=== PATIENT | female | born 1970 | race Caucasian/White ===

== ENCOUNTER → 2020-12-09 06:57 | Outpatient (CLI) | payer OTHER, SELFPAY ==
[2020-12-09 20:23] LABS: SARS-CoV-2 RNA PCR Negative
== END ==
PROVIDERS: PCP Family Medicine
DX: Z01.812 Encounter for preprocedural laboratory examination (principal); Z20.822 Contact with and (suspected) exposure to COVID-19
CPT/HCPCS: C9803; U0003; U0005

== ENCOUNTER 2024-07-07 16:04 | Emergency (ER) | payer OTHER, SELFPAY ==
--- NOTE | ~2024-07-07 | US_ITS ---
LEFT LOWER EXTREMITY VENOUS ULTRASOUND Ordering provider: Juliana Sheppard PA-C History: . pain, swelling . Comparison: None. FINDINGS: --COMMON FEMORAL: Patent and free of thrombus. Normal compressibility, phasic flow and augmentation. --PROXIMAL SUPERFICIAL FEMORAL: Patent and free of thrombus. Normal compressibility, phasic flow and augmentation. --DISTAL SUPERFICIAL FEMORAL: Patent and free of thrombus. Normal compressibility, phasic flow and au gmentation. --POPLITEAL: Patent and free of thrombus. Normal compressibility, phasic flow and augmentation. --POSTERIOR TIBIAL: Patent and free of thrombus. Normal compressibility, phasic flow and augmentation . IMPRESSION: Negative left lower extremity venous US. No deep vein thrombosis. Reviewed, dictated and finalized at location A.
[2024-07-07 16:07] VITALS: BP 160/92; PULSE 88; RESP 15; TEMP 37; O2SAT 100
--- NOTE | 2024-07-07 17:45 | ED.LOWEXIN ---
HPI - Extremity Injury (Lower) General Chief Complaint: Extremity Injury, Lower Stated Complaint: PCP told her to US for DVT Time Seen by Provider: 07/07/24 16:59 History of Present Illness HPI Narrative: Patient is a 54-year-old female who presents to the ER with complaints left lower extremity pain and swelling. 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 Patient uses a walker to ambulate. She reports she has been working with physical therapy when her left lower extremity pain and swelling began. The physical therapist thought this was an Achilles tendinitis, but then patient saw her PCP earlier today who advised her to come to the ER for a Doppler ultrasound. She also reports her family has a history of blood clots. Patient denies shortness of breath, chest pain, fevers. Related Data Allergies Allergy/AdvReac Type Severity Reaction Status Date / Time Wasp Allergy Unknown Uncoded 04/11/16 15:11 Review of Systems Review of Systems: All systems reviewed & are unremarkable except as noted in HPI and below Exam Narrative: GENERAL: Well appearing, well-nourished, non-toxic, in no acute distress. HEAD: Normocephalic, atraumatic. NECK: Supple. No adenopathy, no masses. RESPIRATORY: Airway patent, respirations nonlabored. Clear to auscultation bilaterally, no rales, rhonchi, wheezing. CARDIOVASCULAR: Regular rate and rhythm without murmurs, rubs, or gallops. Peripheral pulses 2+ and equal bilaterally. ABDOMINAL: Soft, nontender, nondistended, no hepatosplenomegaly. Normoactive BS. MUSCULOSKELETAL: Moves all extremities. Strength/ROM intact without gross deformities. No palpable swelling or warmth to touch. SKIN: Warm, dry, normal color. No rashes. NEURO: A&O X3. Speech clear. Cranial nerves II-XII grossly intact. Steady gait. No ataxic movements. PSYCHIATRIC: Appropriate mood and affect. Normal interaction. Course Vital Signs Vital signs: Vital Signs Temperature 37.0 C 07/07/24 16:07 Pulse Rate 88 07/07/24 16:07 Respiratory Rate 15 07/07/24 16:07 Blood Pressure 160/92 H 07/07/24 16:07 Pulse Oximetry 100 07/07/24 16:07 Oxygen Delivery Room Air 07/07/24 16:07 Temperature 37.0 C 07/07/24 16:07 Pulse Rate 88 07/07/24 16:07 Respiratory Rate 15 07/07/24 16:07 Blood Pressure 160/92 H 07/07/24 16:07 Pulse Oximetry 100 07/07/24 16:07 Oxygen Delivery Room Air 07/07/24 16:07 MDM - Extremity Injury (Lower) MDM Narrative Medical decision making narrative: Patient is a 54-year-old female who presents to the ER with complaints left lower extremity pain and swelling. 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 Patient uses a walker to ambulate. She reports she has been working with physical therapy when her left lower extremity pain and swelling began. The physical therapist thought this was an Achilles tendinitis, but then patient saw her PCP earlier today who advised her to come to the ER for a Doppler ultrasound. She also reports her family has a history of blood clots. Patient denies shortness of breath, chest pain, fevers. Patient's left lower extremity venous ultrasound was negative for blood clot. She will be discharged home and encouraged to follow-up with her primary care provider. Patient should continue to ice and elevate her lower extremity. She may take ibuprofen to help decrease swelling. Differential Diagnosis Differential diagnosis: Likely ankle sprain and strain and other (DVT, tendonitis, achilles tendon injury) Discharge Plan Discharge Clinical Impression: Lower extremity pain, left Patient Disposition: Home, Self-Care Condition: Stable Instructions: Antibiotic Form Additional Instructions: Please follow-up with your primary care provider as needed. He may take ibuprofen for pain relief. Please continue
== END 2024-07-07 18:06 | disposition home or self-care (01) ==
PROVIDERS: Emergency Provider Registered Nurse; PCP Family Medicine
DX: M79.605 Pain in left leg (principal)
CPT/HCPCS: 93971; 99284

== ENCOUNTER 2025-07-05 16:43 | Emergency (ER) | payer OTHER, SELFPAY ==
--- OUTSIDE RECORDS SUMMARY | 2012-10-31 01:00 | XMS_ITS | Encounter Summary ---
Author Organization [facility] Healthcare Address [address] [place] [address] Care Team Providers Care Chief Media Officer Name Role Phone Unavailable Primary Care Provider Unavailabl e Reason for Visit * Diagnostic Imaging (Routine) - Closed Specialty Diagnoses / Procedures Referred By Contphillip t Referred To Contact Procedures Breast Imaging Diagnostic Outside Reference Ophelia Sprague, EDUARDO Phone: tel: fax: Referral ID Status Reason Start Date Expiration Date Visits Re quested Visits Authorized [id number] Closed 03/25/2022 04/24/2023 1 1 Encounter Details Date Type Department Care Team (Late st Contact Info) Description 10/31/2012 Hospital Encounter [facility] [address] [place] [address] Social History Tobacco Use Types Packs/Day Years Used Date Smoking Tobacco: Former Cigarettes 0 09/20/1985 - 08/20/1999 Passive Smoke Exposure: Past Smokeless Tobacco: Never Comments:Social AUDIT-C Answer Date Recorded Q1: How often do you have a drink containing alc ohol? Monthly or less 10/04/2023 Q2: How many drinks containi ng alcohol do you have on a typical day when you are drinking? 1 or 2 10/04/2023 Q3: How often do you have si x or more drinks on one occasion? Never 10/04/2023 PHQ-2 Answer Date Recorded PHQ-2 Total Score (If total score is 3 or more points, staff should administer the PHQ-9) 0 06/19/2025 Exercise Vital Sign Answer Date Recorde d On average, how many days pe r week do you engage in moderate to strenuous exercise (like a brisk walk)? 6 days 01/06/2022 On average, how many minutes do you engage in exercise at this level? 40 min 01/06/2022 Personal Safety Answer Date Recorded Have you ever been in or are you currently in a harmful physical or emotional relationship or is someone making you feel afraid or unsafe? 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 Monthly or less 10/04/2023 9:51 AM Ronni Cline MA Q2: How many drinks containing alcohol do you have on a typical day when you are drinking? 1 or 2 10/04/2023 9:51 AM Kimber Cline MA Q3: How often do you have six or more drinks on one occasion? Never 10/04/2023 9:51 AM Kimber Cline MA documented as of this encounter Plan of Treatment Not on file documented as of this encounter Procedures Procedure Name Priority Date/Time Associated Diagnosis Comments BREAST IMAGING MG DIAGNOSTIC OUTSIDE REFERENCE Routine 10/31/2012 12:00 AM SEAT MENDER documented in this encounter Results * Breast Imaging Diagnostic Outside Reference (10/31/2012 12:00 AM SEAT MENDER) Impressions RAD_MAMMO_[facility] - 03/25/2022 9:17 AM CDT These images are for Reference purposes only and have not been reviewed by [facility] Radiology. There will be no report generated by a [facility] Radiologist. Narrative RAD_MAMMO_[facility] - 03/25/2022 9:17 AM CDT EXAMINATION: Images For Reference Purposes Only us Ophelia Sprague CAR CARDER IMG MAMMO PROCEDURES Final Re sult RAD_MAMMO_[facility] documented in this encounter Visit Diagnoses Not on filedocumented in this encounter Additional Health Concerns Infection Onset Date Last Indicated Resolved Time COVID: Suspected 08/13/2023 08/13/2023 08/13/2023 10:32 AM SEAT MENDER documented as of this encounter
--- OUTSIDE RECORDS SUMMARY | 2014-02-06 | XMS_ITS | Encounter Summary ---
Author Organization [facility] Healthcare Address [address] [place] [address] Care Team Providers Care Coordinator Cardiopulmonary Services Name Role Phone Unavailable Primary Care Provider Unavailabl e Reason for Visit * Diagnostic Imaging (Routine) - Closed Specialty Diagnoses / Procedures Referred By Contphillip t Referred To Contact Procedures Breast Imaging Screening Outside Reference Ophelia Sprague, EDUARDO Phone: tel: fax: Referral ID Status Reason Start Date Expiration Date Visits Re quested Visits Authorized [id number] Closed 03/25/2022 04/24/2023 1 1 Encounter Details Date Type Department Care Team (Late st Contact Info) Description 02/06/2014 Hospital Encounter [facility] [address] [place] [address] Social History Tobacco Use Types [...] on file Legal Sex Female 11:29 AM AUDIO/VISUAL OPERATOR Gender Identity Female 10/08/2021 7:18 PM AUDIO/VISUAL OPERATOR Sexual Orientation Not on file 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 on file Not on file documented as of this encounter Functional Status * AUDIT-C Score Answer Date of Assessment Author 1 10/04/2023 9:51 AM Avelino Cline MA * Question Answer Date of Assessment [...] Date/Time Associated Diagnosis Comments BREAST IMAGING MG SCREENING OUTSIDE REFERENCE Routine 02/06/2014 12:00 AM CDT documented in this encounter Results * Breast Imaging Screening Outside Reference (02/06/2014 12:00 AM CDT) Impressions RAD_MAMMO_[facility] - 03/25/2022 9:18 AM CDT These images are for Reference purposes only and have not been reviewed by [facility] Radiology. There will be no report generated by a [facility] Radiologist. Narrative RAD_MAMMO_[facility] - 03/25/2022 9:18 AM CDT EXAMINATION: Images For Reference Purposes Only us Ophelia Sprague SUPERVISOR SHIPPING ROOM IMG MAMMO PROCEDURES Final Re sult RAD_MAMMO_[facility] documented in this encounter Visit Diagnoses Not on filedocumented in this encounter Additional Health Concerns Infection Onset Date Last Indicated Resolved Time COVID: Suspected 08/13/2023 08/13/2023 08/13/2023 10:32 AM AUDIO/VISUAL OPERATOR documented as of this encounter
--- OUTSIDE RECORDS SUMMARY | 2015-06-07 | XMS_ITS | Encounter Summary ---
Author Organization [facility] Healthcare Address [address] [place] [address] Care Team Providers Care Bulb Packer Name Role Phone Unavailable Primary Care Provider Unavailabl e Reason for Visit * Diagnostic Imaging (Routine) - Closed Specialty Diagnoses / Procedures Referred By Contphillip t Referred To Contact Procedures Breast Imaging Screening Outside Reference Ophelia Sprague, EDUARDO Phone: tel: fax: Referral ID Status Reason Start Date Expiration Date Visits Re quested Visits Authorized [id number] Closed 03/25/2022 04/24/2023 1 1 Encounter Details Date Type Department Care Team (Late st Contact Info) Description 06/07/2015 Hospital Encounter [facility] [address] [place] [address] Social History Tobacco Use Types [...] on file Legal Sex Female 11:29 AM BAR FINISH OPERATOR Gender Identity Female 10/08/2021 7:18 PM BAR FINISH OPERATOR Sexual Orientation Not on file 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 Never 10/04/2023 9:51 AM Kimber Cline MA documented as of this encounter Plan of Treatment Not on file documented as of this encounter Procedures Procedure Name Priority Date/Time Associated Diagnosis Comments BREAST IMAGING MG SCREENING OUTSIDE REFERENCE Routine 06/07/2015 12:00 AM CDT documented in this encounter Results * Breast Imaging Screening Outside Reference (06/07/2015 12:00 AM CDT) Impressions RAD_MAMMO_[facility] - 03/25/2022 9:18 AM CDT These images are for Reference purposes only and have not been reviewed by [facility] Radiology. There will be no report generated by a [facility] Radiologist. Narrative RAD_MAMMO_[facility] - 03/25/2022 9:18 AM CDT EXAMINATION: Images For Reference Purposes Only us Ophelia Sprague PUSHER RUNNER IMG MAMMO PROCEDURES Final Re sult RAD_MAMMO_[facility] documented in this encounter Visit Diagnoses Not on filedocumented in this encounter Additional Health Concerns Infection Onset Date Last Indicated Resolved Time COVID: Suspected 08/13/2023 08/13/2023 08/13/2023 10:32 AM BAR FINISH OPERATOR documented as of this encounter
--- OUTSIDE RECORDS SUMMARY | 2016-07-30 01:00 | XMS_ITS | Encounter Summary ---
Author Organization [facility] Healthcare Address [address] [place] [address] Care Team Providers Care Email Administrator Name Role Phone Unavailable Primary Care Provider Unavailabl e Reason for Visit * Diagnostic Imaging (Routine) - Closed Specialty Diagnoses / Procedures Referred By Contphillip t Referred To Contact Procedures Breast Imaging Screening Outside Reference Ophelia Sprague, EDUARDO Phone: tel: fax: Referral ID Status Reason Start Date Expiration Date Visits Re quested Visits Authorized [id number] Closed 03/25/2022 04/24/2023 1 1 Encounter Details Date Type Department Care Team (Late st Contact Info) Description 07/30/2016 Hospital Encounter [facility] [address] [place] [address] Social History Tobacco Use Types [...] on file Legal Sex Female 11:29 AM LADLE REPAIRER Gender Identity Female 10/08/2021 7:18 PM LADLE REPAIRER Sexual Orientation Not on file 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 There will be no report generated by a [facility] Radiologist. Narrative RAD_MAMMO_[facility] - 03/25/2022 9:18 AM CDT EXAMINATION: Images For Reference Purposes Only us Ophelia Sprague BEATING MACHINE OPERATOR IMG MAMMO PROCEDURES Final Re sult RAD_MAMMO_[facility] documented in this encounter Visit Diagnoses Not on filedocumented in this encounter Additional Health Concerns Infection Onset Date Last Indicated Resolved Time COVID: Suspected 08/13/2023 08/13/2023 08/13/2023 10:32 AM LADLE REPAIRER documented as of this encounter
--- OUTSIDE RECORDS SUMMARY | 2018-04-01 | XMS_ITS | Encounter Summary ---
Author Organization [facility] Healthcare Address [address] [place] [address] Care Team Providers Care Heating Worker Name Role Phone Unavailable Primary Care Provider Unavailabl e Reason for Visit * Diagnostic Imaging (Routine) - Closed Specialty Diagnoses / Procedures Referred By Contphillip t Referred To Contact Procedures Breast Imaging Screening Outside Reference Ophelia Sprague, EDUARDO Phone: tel: fax: Referral ID Status Reason Start Date Expiration Date Visits Re quested Visits Authorized [id number] Closed 03/25/2022 04/24/2023 1 1 Encounter Details Date Type Department Care Team (Late st Contact Info) Description 04/01/2018 Hospital Encounter [facility] [address] [place] [address] Social History Tobacco Use Types [...] on file Legal Sex Female 11:29 AM GRILL CHEF Gender Identity Female 10/08/2021 7:18 PM GRILL CHEF Sexual Orientation Not on file 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 There will be no report generated by a [facility] Radiologist. Narrative RAD_MAMMO_[facility] - 03/25/2022 9:17 AM CDT EXAMINATION: Images For Reference Purposes Only us Ophelia Sprague VENEREAL DISEASE INVESTIGATOR IMG MAMMO PROCEDURES Final Re sult RAD_MAMMO_[facility] documented in this encounter Visit Diagnoses Not on filedocumented in this encounter Additional Health Concerns Infection Onset Date Last Indicated Resolved Time COVID: Suspected 08/13/2023 08/13/2023 08/13/2023 10:32 AM GRILL CHEF documented as of this encounter
--- OUTSIDE RECORDS SUMMARY | 2019-07-03 | XMS_ITS | Encounter Summary ---
Author Organization [facility] Healthcare Address [address] [place] [address] Care Team Providers Care Dye Beck Reel Operator Name Role Phone Unavailable Primary Care Provider Unavailabl e Reason for Visit * Diagnostic Imaging (Routine) - Closed Specialty Diagnoses / Procedures Referred By Contphillip t Referred To Contact Procedures Breast Imaging Screening Outside Reference Ophelia Sprague, EDUARDO Phone: tel: fax: Referral ID Status Reason Start Date Expiration Date Visits Re quested Visits Authorized [id number] Closed 03/25/2022 04/24/2023 1 1 Encounter Details Date Type Department Care Team (Late st Contact Info) Description 07/03/2019 Hospital Encounter [facility] [address] [place] [address] Social History Tobacco Use Types Packs/Day [...] on file Legal Sex Female 11:29 AM CRYOLITE RECOVERY OPERATOR Gender Identity Female 10/08/2021 7:18 PM CRYOLITE RECOVERY OPERATOR Sexual Orientation Not on file 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 There will be no report generated by a [facility] Radiologist. Narrative RAD_MAMMO_[facility] - 03/25/2022 9:26 AM CDT EXAMINATION: Images For Reference Purposes Only us Ophelia Sprague KENNEL OPERATOR IMG MAMMO PROCEDURES Final Re sult RAD_MAMMO_[facility] documented in this encounter Visit Diagnoses Not on filedocumented in this encounter Additional Health Concerns Infection Onset Date Last Indicated Resolved Time COVID: Suspected 08/13/2023 08/13/2023 08/13/2023 10:32 AM CRYOLITE RECOVERY OPERATOR documented as of this encounter
--- OUTSIDE RECORDS SUMMARY | 2020-11-14 01:00 | XMS_ITS | Encounter Summary ---
Author Organization [facility] Healthcare Address [address] [place] [address] Care Team Providers Care Thermodynamics Professor Name Role Phone Unavailable Primary Care Provider Unavailabl e Reason for Visit * Diagnostic Imaging (Routine) - Closed Specialty Diagnoses / Procedures Referred By Contphillip t Referred To Contact Procedures Breast Imaging Screening Outside Reference Ophelia Sprague, EDUARDO Phone: tel: fax: Referral ID Status Reason Start Date Expiration Date Visits Re quested Visits Authorized [id number] Closed 03/25/2022 04/24/2023 1 1 Encounter Details Date Type Department Care Team (Late st Contact Info) Description 11/14/[address] 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 Not on file Not on file documented as of this encounter Functional Status * AUDIT-C Score Answer Date of Assessment Author 1 10/04/2023 9:51 AM BUS DISPATCHER INTERSTATE Avelino Rodriguez MA * Question Answer Date [...] BREAST IMAGING MG SCREENING OUTSIDE REFERENCE Routine 11/14/2020 12:00 AM BUS DISPATCHER INTERSTATE documented in this encounter Results * Breast Imaging Screening Outside Reference (11/14/2020 12:00 AM BUS DISPATCHER INTERSTATE) Impressions RAD_MAMMO_[facility] - 03/25/2022 9:26 AM CDT These images are for Reference purposes only and have not been reviewed by [facility] Radiology. There will be no report generated by a [facility] Radiologist. Narrative RAD_MAMMO_[facility] - 03/25/2022 9:26 AM CDT EXAMINATION: Images For Reference Purposes Only us Ophelia Sprague WEIGH BOSS IMG MAMMO PROCEDURES Final Re sult RAD_MAMMO[facility] documented in this encounter Visit Diagnoses Not on filedocumented in this encounter Additional Health Concerns Infection Onset Date Last Indicated Resolved Time COVID: Suspected 08/13/2023 08/13/2023 08/13/2023 10:32 AM BUS DISPATCHER INTERSTATE documented as of this encounter
--- OUTSIDE RECORDS SUMMARY | 2022-02-13 09:00 | XMS_ITS | Continuity of Care Document ---
Author Organization [facility] Address [address] [place] [address] Phone Care Team Providers Care Sales Development Executive Name Role Phone Sameer PT,MPT,ATC, Gary Unavailable Unavai lable Procedures Procedure Date Neuromuscular Re-Ed Therapeutic Activities Therapeutic Exercise Therapeutic Activities Neuromuscular Re-Ed Therapeutic Exercise Therapeutic Activities Neuromuscular Re-Ed Therapeutic Exercise PT Evaluation High Complexity Therapeutic Activities Advance Directives Directive Yes / No Effective Date File Name No Information Encounters Encounter Description Practice Location Reason(s) For Visit Diagnoses Date Provider Providers Copied on Encounter [facility], [address], [id number], tel:[phone] [place] No Information 2 Sameer Garcia [place], [place], [place]. Referring Provider: Laureano Dior, [address] [place] [address], [address]. tel:[phone] [facility], [address] [facility] [address], [place], [place], [id number], tel:[phone] [place] No Information 2 Sameer Garcia [place], [place], [place]. Referring Provider: Laureano Dior, [address] [place] [address] Office [facility] [address], [address]. tel:[phone] [facility] [address] [place] [address], [id number], tel:[phone] [place] No Information 2 [place], [place], . Referring Provider: Laureano Dior, [address] [place] [address], [facility]. tel:[phone] [facility] [address], [id number], tel:[phone] [place] No Information 2 [facility]. Referring Provider: Laureano Dior, [address] [place] [address], [facility]. tel:[phone] [facility] [address] [place] [address], [id number], tel:[phone] [place] No Information 2 [place], [place], [place]. Referring Provider: Laureano Dior, [address] [place] [address], [facility]. tel:[phone] Family History Family Member Type Diagnosis Age At Onset No Information Payers Payer name Insurance type Covered alliance party ID Authoriza tion(s) No Information Social History Type Description Quantity Date Captured Comments Sex Male Smoking Status No Information Chief Complaint And Reason For Visit No Information Reason For Referral Reason For Referral No Information History Of Present Illness Encounter Date Complaint History Of Prese nt Illness No Information Functional Status Date Functional Assessmen t No Information Instructions Date Instruction Additional Infor mation Giving encouragement to exercise Related to Overweight Giving encouragement to exercise Related to Overweight Assessments Type Assessment Date No Information Patient Care Teams Name Effective Dates (start - stop) Status Members No Information
--- OUTSIDE RECORDS SUMMARY | 2022-02-13 09:00 | XMS_ITS | Continuity of Care Document ---
Author Organization [facility] Address [address] [place] [address] Phone Care Team Providers Care Pm Head Cook Name Role Phone Sameer PT,MPT,ATC, Gary Unavailable Unavai lable Procedures Procedure Date Neuromuscular Re-Ed Therapeutic Activities Therapeutic Exercise Therapeutic Activities Neuromuscular Re-Ed Therapeutic Exercise Therapeutic Activities Neuromuscular Re-Ed Therapeutic Exercise PT Evaluation High Complexity Therapeutic Activities Advance Directives Directive Yes / No Effective Date File Name No Information Encounters Encounter Description Practice Location Reason(s) For Visit Diagnoses Date Provider Providers Copied on Encounter [facility], [address], [id number], tel:[phone] [place] No Information 2 Sameer Garcia [place], [place], [place]. Referring Provider: Laureano Dior, [address] [place] [address], [address]. tel:[phone] [facility], [address] [facility] [address], [place], [place], [id number], tel:[phone] [place] No Information 2 Sameer Garcia [place], [place], [place]. Referring Provider: Laureano Dior, [address] [place] [address] Office [facility] [address], [address]. tel:[phone] [facility] [address] [place] [address], [id number], tel:[phone] [place] No Information 2 [place], [place], . Referring Provider: Laureano Dior, [address] [place] [address], [facility]. tel:[phone] [facility] [address], [id number], tel:[phone] [place] No Information 2 [facility]. Referring Provider: Laureano Dior, [address] [place] [address], [facility]. tel:[phone] [facility] [address] [place] [address], [id number], tel:[phone] [place] No Information 2 [place], [place], [place]. Referring Provider: Laureano Dior, [address] [place] [address], [facility]. tel:[phone] Family History Family Member Type Diagnosis Age [...]
--- NOTE | 2025-07-05 16:47 | PC.NURSE ---
Pt left the department
--- OUTSIDE RECORDS SUMMARY | 2025-07-05 17:54 | XMS_ITS | Clinical Summary ---
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 06/13/2021 Active Active Problems Problem Noted Date Diagnosed Date Lumbar radiculopathy 04/13/2022 Family History Medical History Relation Comments No Known Problems Brother No Known Problems Father No Known Problems Maternal Aunt No Known Problems Maternal Grandfather No Known Problems Maternal Grandmother No Known Problems Maternal Uncle No Known Problems Mother No Known Problems Other No Known Problems Paternal Aunt No Known Problems Paternal Grandfather No Known Problems Paternal Grandmother No Known Problems Paternal Uncle No Known Problems Sister Relation Status Comments Brother Father Maternal Aunt Maternal Grandfather Maternal Grandmother Maternal Uncle Mother Other Paternal Aunt Paternal Grandfather Paternal Grandmother Paternal Uncle Sister Social History Tobacco Use Types Packs/Day Years Used Date Smoking Tobacco: Never Smokeless Tobacco: Never Tobacco Cessation:Counseling Given: No Comments:patient doesnt smoke PHQ-2 Answer Date Recorded PHQ-2 Score - If the patient scores above 3, please move on to questions 3-9 0 04/10/2022 Comments Unknown Sex and Gender Information Value Date Recorded Sex Assigned at Not on file Legal Sex Female 2:12 PM CDT Gender Identity Not on file Sexual Orientation Not on file Last Filed Vital Signs Vital Sign Reading Time Taken Comments Blood Pressure 138/84 04/13/2022 3:30 PM CDT Pulse 81 04/13/2022 3:30 PM CDT Temperature - - Respiratory Rate - - Oxygen Saturation 97% 04/13/2022 3:30 PM CDT Inhaled Oxygen Concentration - - Weight 83.5 kg (184 lb) 04/13/2022 3:30 PM CDT Height 170.2 cm (5' 7) 04/13/2022 3:30 PM CDT Body Mass Index 28.82 04/13/2022 3:30 PM CDT Plan of Treatment Health Maintenance Due Date Last Done Comments Cervical Cancer Screening Pa p Smear (Age 30 to 64) Every 3 Years 1970 Colorectal Cancer Screening Colonoscopy (10 Years) 1970 Annual Physical 1973 Hepatitis C 01/13/1988 DTaP, Tdap and Td Vaccines ( 1 - Tdap) 1989 Hepatitis B Vaccines (1 of 3 - 19+ 3-dose series) 1989 Cervical Cancer Screening Pa p with HPV Testing (Age 30 to 64) Every 5 Years 01/13/2000 Cervical Cancer Screening wi th HPV 01/13/2000 Mammogram Screening 2010 Pneumococcal Vaccine: 50+ Years (1 of 1 - PCV) 01/13/2020 COVID-19 Vaccine (2024-2 6 season) 2025 09/11/2021, 02/03/2021, 01/13/2021 Influenza Adult (#1) 2025 07/29/2021, 08/03/2020 Zoster Vaccines Completed 09/14/2020, 05/11/2020 Hepatitis A Vaccines Aged Out No long er eligible based on patient's age to complete this topic Meningococcal B Vaccine Aged Out No l onger eligible based on patient's age to complete this topic Meningococcal Vaccine Aged Out No evans jake eligible based on patient's age to complete this topic RSV Immunizations Under 20 Months Aged Out No longer eligible b ased on patient's age to complete this topic Insurance [facility] Care Teams Traffic Workforce Representative Relationship Specialty Start Date End Date Joni Hilario MD [address] [place] [address] [id number] [place] [address] PCP - General FAMILY PRACTICE 04/10/22
--- OUTSIDE RECORDS SUMMARY | 2025-07-05 17:54 | XMS_ITS | Clinical Summary ---
Author Organization [facility] [address] [place] [id number] Care Team Providers Care Gi Physician Name Role Phone Laureano Ramos MD Unavailable [phone] Stacie Madrid MD Unavailable [phone] Joni Hilario MD Primary Care Provider [phone] Allergies Active Allergy Reactions Criticality Noted Date Comments Venom-Wasp Anaphylaxis High 09/02/2021 Medications UNABLE TO FIND as needed Med Name: CBD PO and topical per per. Active flaxseed oiL 1,000 mg capsule Take 1 capsule (1,000 mg total) by mouth daily Active cod liver oiL capsuleIndicati ons:Vitamin D Deficiency,dee min A deficiency Take 1 capsule by mouth daily Active HERBAL DRUGS ORAL Boswellia Complex: 3 tablets daily Active Lactobacillus acidophilus 1 billion cell capsule Take 1 capsule by mouth daily Active MAGNESIUM L-THREONATE ORAL 03/20/20 24 Active RED BEET ORAL Take by mouth Ac tive EPINEPHrine 0.3 mg/0.3 mL auto-injection syringe Inject 0.3 mL (0.3 mg total) into the muscle as instructed daily as needed for anaphylaxis 2 each 2 06/19/20 25 Active losartan-hydroc hlorothiazide (HYZAAR) 100-25 mg per tabletIndicatio ns:Primary hypertension TAKE 1 TABLET DAILY 90 tablet 3 07/03/20 25 Active EPINEPHrine 0.3 mg/0.3 mL auto-injection syringe Inject 0.3 mL (0.3 mg total) into the muscle as instructed daily as needed for anaphylaxis 2 each 2 05/15/20 24 2024 Discontinued(R eorder) acetaminophen (TYLENOL) 500 mg tablet Take 2 tablets (1,000 mg total) by mouth as needed 2024 Discontinued(T herapy completed) losartan-hydroc hlorothiazide (HYZAAR) 100-25 mg per tabletIndicatio ns:Primary hypertension TAKE 1 TABLET DAILY 100 tablet 04/04/20 25 2024 Discontinued Active Problems Problem Noted Date Diagnosed Date 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 Cervical myelopathy 06/29/2024 Pituitary adenoma 06/29/2024 S/P arthroscopic partial medial meniscectomy Chronic pain of right knee 03/09/2023 Acute medial meniscus tear of right knee 023 Hypercholesterolemia 02/09/2023 Tarsal tunnel syndrome of right side 08/20/2022 Radiculopathy, lumbosacral region 07/28/2022 Spinal stenosis of lumbar re gion without neurogenic claudication 07/28/2022 Right foot drop 06/17/2022 Assessment & Plan (06/17/2022 11:20 AM CDT): Gricel Andrade is a 52 year old woman with history of cervical myelopathy s/p C4-C6 ACDF (08/2021) and right foot drop, presenting for evaluation of possible dystonia. This right foot drop has impaired her walking and running. She reports paroxysmal shooting pain in her lower leg, but denied persistent sensory changes. Her exam was notable for right lower extremity weakness (4/5, except for knee extension 5/5) and left ankle dorsiflexion weakness. She did not have any sensory deficits on exam. She was hyperreflexic with ankle clonus bilaterally (Right more than left). She had mild circumduction of her right leg when walking. She did not exhibit any posturing while walking and her foot drop was present when walking both forward and backward. She has had multiple EMG/NCS that have not shown a clear peripheral cause for her right lower extremity weakness. Her RLE weakness did not respond to cervical decompression. Her current presentation is not consistent with dystonia or another movement disorder. She has not had any abnormal posturing, and she denied any focal stiffness. Her predominant symptom is weakness, as detected on confrontational testing and with mild circumduction in walking. Dystonia is not typically accompanied by weakness. It is not clear as this time what is causing her weakness. I would not expect her weakness to progress after cervical decompression if it were related to a cervical myelopathy. The asymmetry in her weakness (more prominent on the right than left) could suggest an intracranial pathology. We will also check for reversible causes of myelopathy. Plan: - MRI brain with IAC with and without contrast. IAC as medullary lesion could cause bilateral symptoms and she has had some change in voice - check B12, Cu, Vitamin E - schedule follow-up in 3 months, though depending on results she may not need follow-up in movement disorders clinic. - agree with recommendation for an AFO and physical therapy Impaired gait and mobility 06/17/2022 Sacroiliitis 04/08/2022 Spondylosis of lumbar region without myelopathy or radiculopathy 04/08/2022 Weakness of right lower extremity 04/08/2022 Encounter for medical examination to establish c are 01/06/2022 Assessment & Plan (01/06/2022 3:13 PM CDT): A initial well visit to establish care has been performed today. Gricel Andrade is not up to date on screening tests. She is in need of Breast cancer screening, Colon cancer screening and Cervical cancer screening- some of these appear to have been done in the past, we will try to get records. She is not up to date on needed preventative vaccinations; She is in need of Tdap/Td and Covid-19 (booster). These have been ordered/arranged unless otherwise indicated. Menorrhagia with regular cycle 11/27/2021 Fibroid 11/27/2021 Cervical disc disorder with myelopathy of mid-cervical region 08/11/2021 Overview (08/11/2021): Added automatically from request for surgery [id number] Post-operative state 09/24/2020 Screen for colon cancer 07/05/2020 Overweight 02/09/2019 Allergy to bee sting 02/09/2019 Primary hypertension 12/26/2018 Assessment & Plan (01/06/2022 3:09 PM CDT): Blood pressure remains elevated on recheck. We will adjust blood pressure medication, starting on losartan- hydrochlorothiazide 50-25 mg daily Would recommend taking at bedtime or in the evening Resolved Problems Problem Noted Date Diagnosed Date Resolved Date Class 1 obesity due to exces s calories without serious comorbidity with body mass index (BMI) of 31.0 to 31.9 in adult 03/10/2023 Assessment & Plan (03/10/2023 11:57 AM CDT): BMI Follow-up includes: nutrition counseling, exercise counseling, and education provided. Pruritus ani 02/09/2019 12/18/2024 Encounters Date Type Department Care Team Description 06/19/2025 8:15 AM CDT Office Visit [facility] Primary Care at [address] [phone] Joni Hilario MD Primary hypertension (Primary Dx); Need for vaccination; Hypercholesterolemia ; Cervical myelopathy (HCC); Pituitary adenoma (HCC) 06/14/2025 3:15 PM CDT Lab [place] [id number] Screening for thyroid disorder; Screening, lipid; Well adult exam 06/14/2025 Results Follow-Up [facility] Primary Care at [address] [phone] Joni Hilario MD CBC with auto differential, Differential, auto 05/10/2025 1:00 PM CDT Office Visit [facility] Medicine Orthopaedic Surgery [address] [place] [address] Advanced Medicine 12th [place] [address] [place] [address] Rickey Kidd PA Spasticity (Primary Dx); Cervical myelopathy (HCC) from Last 3 Months Immunizations Immunization Administration Dates Next Due Influenza, Quadrivalent, Rec ombinant, Egg Free, Preservative Free, Intramuscular 08/03/2020 Influenza, Quadrivalent, Spl it, Preservative Free, Intramuscular 07/27/2022,07/29/2021 Influenza, Trivalent, Preser vative Free, Intramuscular 06/19/2025,12/18/2024 Influenza, Unspecified 10/04/2023(Deferr ed: Patient Refused),09/20/2022(Deferred: Patient Refused),07/21/2021,08/04/2020(Deferre d: Patient Refused) Pfizer SARS-CoV-2 Monovalent Vaccination (12+ Yrs) PURPLE 02/03/2021,01/13/2021 Tdap 06/19/2025 ZOSTER Recombinant 09/14/2020,05/11/2020 Surgical History Surgery Date Site/Laterality Comments HYSTERECTOMY 10/13/2020 still has ovaries COLONOSCOPY BIOPSY anal SPINE SURGERY 09/02/2021 C4-6 WISDOM TOOTH EXTRACTION 09/20/1987 - 09/19/1988 KNEE ARTHROSCOPY W/ LATERAL RELEASE 06/2023 Medical History Medical History Date Comments Hypertension PONV (postoperative nausea and vomiting) admitted following hysterectomy d/t PONV DDD (degenerative disc disea se), cervical Cervical myelopathy (HCC) Family History Medical History Relation Name Comments Diabetes Brother Jim No Known Problems Daughter Alcohol abuse Father Ricardo Alzheimer's disease Father Ricardo Diabetes Father Ricardo Heart attack Father Ricardo Hypertension Father Ricardo Obesity Father Ricardo Cancer Mother Cora breast Clotting disorder Mother Cora Deep vein thrombosis Mother Cora Diabetes Mother Cora Heart failure Mother Cora Hypertension Mother Cora Obesity Mother Cora No Known Problems Sister 1 Theresa Cancer Sister 2 Ludwig Diabetes Sister 2 Ludwig Hypertension Sister 2 Ludwig Obesity Sister 2 Ludwig Cancer Sister 3 Melissa Diabetes Sister 3 Melissa Hypertension Sister 3 Melissa Obesity Sister 3 Melissa Diabetes Sister 4 Christina Hypertension Sister 4 Christina Obesity Sister 4 Christina Hypertension Sister 5 Sophy No Known Problems Son 1 No Known Problems Son 2 Anesthesia problems Neg Hx Relation Name Status Comments Brother Jim Alive Daughter Alive Father Ricardo Mother Cora Alive Sister 1 Theresa Alive Sister 2 Ludwig Alive Sister 3 Melissa Alive Sister 4 Christina Alive Sister 5 Sophy Alive Son 1 Alive Son 2 Alive Social History Tobacco Use Types Packs/Day Years Used Date Smoking Tobacco: Former Cigarettes 0 09/20/1985 - 08/20/1999 Passive Smoke Exposure: Past Smokeless Tobacco: Never Tobacco Cessation:Counseling Given: Not Answered Comments:Social AUDIT-C Answer Date Recorded Q1: How [...] on file Legal Sex Female 11:29 AM WATER PUMPER Gender Identity Female 10/08/2021 7:18 PM WATER PUMPER Sexual Orientation Not on file 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 Not on file Not on file Not on file Obstetrics History Last Filed Vital Signs Vital Sign Reading Time Taken Comments Blood Pressure 124/70 06/19/2025 8:25 AM CDT Pulse 78 06/19/2025 8:25 AM CDT Temperature 36.8 C (98.3 F) 06/19/2025 8:25 AM CDT Respiratory Rate 18 06/19/2025 8:25 AM CDT Oxygen Saturation 97% 06/19/2025 8:25 AM CDT Inhaled Oxygen Concentration - - Weight 79.8 kg (176 lb) 06/19/2025 8:25 AM CDT Height 170.2 cm (5' 7) 06/19/2025 8:25 AM CDT Body Mass Index 27.57 06/19/2025 8:25 AM CDT Plan of Treatment Health Maintenance Due Date Last Done Comments Breast Cancer Screening-Mammogram 10/19/2025 10/19/2024, 03/02/2022, 03/02/2022, Additional history exists Regular Well Visit/Exam 18-64 12/18/2025 12/18/2024, 01/06/2022 Covid-19 Vaccine ( season) 2026 09/11/2021, 02/03/2021, 01/13/2021 Postponed from 05/21/2025 (Patient declined, but will receive in the future) Depression Screening 06/19/2026 06/19/2025, 12/18/2024, 06/19/2024, Additional history exists Colon Cancer Screening-Colonoscopy 12/12/2030 12/12/2020 DTaP/Tdap/Td Vaccine (2 - Td or Tdap) 06/19/2035 06/19/2025 Zoster Vaccine Completed 09/14/2020, 05/11/2020 Hepatitis B Screening Completed 12/11/2024 Hepatitis C Screening Completed 12/11/2024 Influenza Vaccine Completed 06/19/2025, , 07/27/2022, Additional history exists Pneumococcal vaccine <65 Aged Out No longer eligible based on patient's age to complete this topic Medical Devices Implanted Type Area Ticket Worker Device Identifier Shelf Expiration Date Model / Serial / Lot [employer] 700-025 I Factor Allograft Putty Syringe Graft 2.5cc Bone - [id number] Implanted:Qty: 1 on 09/02/2021 by Laureano Ramos MD at [facility] Graft N/A: Spine Cervical [employer] 04/19/2024 700-025 / / [id number] [employer] [id number] Cage Spinal Cervical 12d X 14w X 6h 6 Degree - [id number] Implanted:Qty: 1 on 09/02/2021 by Laureano Ramos MD at [facility] N/A: Spine Cervical [employer] [id number] 01/27/2024 [id number] / / [id number] [employer] [id number] Cage Spinal Cervical 12d X 14w X 6h 6 Degree - [id number] Implanted:Qty: 1 on 09/02/2021 by Laureano Ramos MD at [facility] N/A: Spine Cervical [employer] [id number] / / [employer] [id number] Maxan 4mm 14mm Variable Angle Self Drill Spine Screw Bone - [id number] Implanted:Qty: 4 on 09/02/2021 by Laureano Ramos MD at [facility] N/A: Spine Cervical [employer] [id number] / / [employer] [id number] Maxan 4mm 14mm Fix Angle Spine Screw Bone - [id number] Implanted:Qty: 2 on 09/02/2021 by Laureano Ramos MD at [facility] N/A: Spine Cervical [employer] [id number] / / [employer] [id number] Maxan 26mm Level 2 Spine Cervical Anterior Plate Bone Titanium - [id number] Implanted:Qty: 1 on 09/02/2021 by Laureano Ramos MD at [facility] N/A: Spine Cervical [employer] [id number] / / Procedures Procedure Name Priority Date/Time Associated Diagnosis Comments EGFR Routine 06/14/2025 3:20 PM CDT Well adult exam DIFFERENTIAL AUTO Routine 06/14/2025 3:2 0 PM CDT Well adult exam COMPREHENSIVE METABOLIC PANEL Routine 06/14/2025 3:20 PM CDT Well adult exam CBC WITH AUTO DIFFERENTIAL Routine 06/14/2025 3:20 PM CDT Well adult exam LIPID PANEL Routine 06/14/2025 3:20 PM CDT Screening, lipid THYROID FUNCTION CASCADE Routine 06/14/2025 3:20 PM CDT Screening for thyroid disorder BOTOX INJECTION Routine 05/10/2025 1:00 PM CDT Spasticity HEPATITIS C ANTIBODY Routine 12/11/2024 1:20 PM CDT Need for hepatitis C screening test SCREENING MAMMOGRAM BILATERAL W AUGUSTO Schedule Routine, Read Routine (OP Routine) 10/19/2024 11:46 AM WATER PUMPER Encounter for screening mammogram for breast cancer COLONOSCOPY Routine 12/12/2020 from Last 3 Months or Most Recently Relevant to Health Maintenance Results * eGFR (06/14/2025 3:20 PM CDT) [facility] eGFR >90 >=60 mL/min/1. 73 m2 Comment: Interpretive Data Reference Interval Normal >/= 90 mL/min/1.73m2 Mildly decreased* 60 - 89 mL/min/1.73m2 Mildly to moderately decreased 45 - 59 mL/min/1.73m2 Moderately to severely decreased 30 - 44 mL/min/1.73m2 Severely decreased 15 - 29 mL/min/1.73m2 Kidney Failure < 15 mL/min/1.73m2 *Relative to young adult level Estimated glomerular filtration rate is determined by the 2020 CKD-EPI equation recommended by the National Kidney Foundation (A Unifying Approach to GFR Estimation: Recommendations of the NKF-ASK Task Force on Reassessing the Inclusion of Race in Diagnosing Kidney Disease, JASN 2020). The CKD-EPI equation should not be used for patients with unstable renal function and has not been validated in children and those over 70. Current interpretive data was last reviewed 2021. Blood 06/14/2025 3:20 PM CDT 06/14/2025 6:17 PM CDT us Joni Hilario MD LAB BLOOD ORDERABLES Final Result [facility] [address] [place] [address] * Differential, auto (06/14/2025 3:20 PM CDT) [facility] Neutrophil abs 2.85 1.50 - 6.50 K/cumm Imm gran abs 0.01 0.00 - 0.10 K/cumm [facility] Lymphocyte abs 2.51 0.80 - 3.30 K/cumm [facility] Monocyte abs 0.53 0.20 - 0.80 K/cumm [facility] Eosinophil abs 0.10 0.00 - 0.50 K/cumm [facility] Basophil abs 0.04 0.00 - 0.10 K/cumm [facility] Neutrophil pct 47.0 % [facility] Comment: Interpretive Data Percent cell count reference ranges are not reported, since discordance with absolute values may lead to misinterpretation of CBC data. Current Interpretive Data was last revised on 2017. Imm gran pct 0.2 % [facility] Comment: Interpretive Data Percent cell count reference ranges are not reported, since discordance with absolute values may lead to misinterpretation of CBC data. Current Interpretive Data was last revised on 2017. Lymphocyte pct 41.6 % [facility] Comment: Interpretive Data Percent cell count reference ranges are not reported, since discordance with absolute values may lead to misinterpretation of CBC data. Current Interpretive Data was last revised on 2017. Monocyte pct 8.8 % [facility] Comment: Interpretive Data Percent cell count reference ranges are not reported, since discordance with absolute values may lead to misinterpretation of CBC data. Current Interpretive Data was last revised on 2017. Eosinophil pct 1.7 % [facility] Comment: Interpretive Data Percent cell count reference ranges are not reported, since discordance with absolute values may lead to misinterpretation of CBC data. Current Interpretive Data was last revised on 2017. Basophil pct 0.7 % [facility] Comment: Interpretive Data Percent cell count reference ranges are not reported, since discordance with absolute values may lead to misinterpretation of CBC data. Current Interpretive Data was last revised on 2017. Blood 06/14/2025 3:20 PM CDT 06/14/2025 6:17 PM CDT Joni Hilario MD LAB BLOOD ORDERABLES Final Result Performing Organization Address City/[facility] Co de Phone Number [facility] [address] Department [place] [address] * Thyroid Function Benavides (06/14/2025 3:20 PM CDT) TSH 1.30 0.30 - 4.20 mcIUnit/mL Blood 06/14/2025 3:20 PM CDT 06/14/2025 6:17 PM CDT Joni Hilario MD LAB BLOOD ORDERABLES Final Result Performing Organization Address City/State/[facility] Co de Phone Number [id number] [place] [address] * CBC with auto differential (06/14/2025 3:20 PM CDT) WBC 6.04 3.80 - 9.90 K/cumm Hgb 13.5 11.9 - 15.5 g/dL [facility] Hct 40.0 35.6 - 45.5 % [facility] Plt 332 150 - 400 K/cumm [facility] MPV 10.1 9.1 - 12.3 fL [facility] RBC 4.41 3.90 - 5.20 M/cumm [facility] MCV 90.7 81.3 - 96.4 fL [facility] MCH 30.6 27.1 - 33.3 pg [facility] MCHC 33.8 32.3 - 35.7 g/dL [facility] RDW CV 12.8 11.1 - 14.9 % [facility] RDW SD 42.5 35.7 - 48.1 fL [facility] NRBC abs 0.00 0.00 - 0.01 K/cumm [facility] Blood 06/14/2025 3:20 PM CDT 06/14/2025 6:17 PM CDT Joni Hilario MD LAB BLOOD ORDERABLES Final Result Performing Organization Address [facility] Co de Phone Number [address] Department [place] [address] * (ABNORMAL) Lipid panel (06/14/2025 3:20 PM CDT) Cholesterol 229(H) 30 - 199 mg/dL Comment: Interpretive Data Ages < or = 19 years Acceptable: <170 mg/dL Borderline high: 170-199 mg/dL High: >or= 200 mg/dL Ages > or = 20 years Desirable: <200 mg/dL Borderline high: 200-239 mg/dL High: >or= 240 mg/dL Literature References: 1. Expert Panel on Integrated Guidelines for Cardiovascular Health and Risk Reduction in Children and Adolescents. Pediatrics 2011;128:S213 2. NCEP Expert Panel. Circulation 2004;110:227 Current Interpretive Data was last revised on 2018. Triglycerides 113 <=149 mg/dL [facility] Comment: Interpretive Data Ages < or = 9 years Acceptable: <75 mg/dL Borderline high: 75-99 mg/dL High: >or= 100 mg/dL Ages 10 to 20 years Acceptable: <90 mg/dL Borderline high: 90-129 mg/dL High: >or= 130 mg/dL Ages > or = 20 years Desirable: <150 mg/dL Borderline high: 150-199 mg/dL High: 200-499 mg/dL Very high: >or= 499 mg/dL Literature References: 1. Expert Panel on Integrated Guidelines for Cardiovascular Health and Risk Reduction in Children and Adolescents. Pediatrics 2011;128:S213 2. NCEP Expert Panel. Circulation 2003;110:227 Current Interpretive Data was last revised on 2018. HDL 85 >=40 mg/dL [facility] Comment: Interpretive Data Ages < or = 19 years Acceptable: >45 mg/dL Borderline low: 40-45 mg/dL Low: <40 mg/dL Ages > or = 20 years Desirable: >or= 60 mg/dL Low: <40 mg/dL Literature References: 1. Expert Panel on Integrated Guidelines for Cardiovascular Health and Risk Reduction in Children and Adolescents. Pediatrics 2011;128:S213 2. NCEP Expert Panel. Circulation 2003;110:227 Current Interpretive Data was last revised on 2018. LDL, calculated 125 <=129 mg/dL [facility] Comment: Interpretive Data Ages < or = 19 years Acceptable: <110 mg/dL Borderline high: 110-129 mg/dL High: >or= 130 mg/dL Ages > or = 20 years Optimal: <100 mg/dL Near optimal: 100-129 mg/dL Borderline high: 130-159 mg/dL High: >160 mg/dL Calculated using the Ender LDL-C estimating equation. This equation was implemented on 2024. Prior to this date LDL-C was estimated using the Friedewald equation. Literature References: 1. Expert Panel on Integrated Guidelines for Cardiovascular Health and Risk Reduction in Children and Adolescents. Pediatrics 2011;128:S213 2. NCEP Expert Panel. Circulation 2004;110:227 3. Ender Kenyon et al. ARI Cardiol. 2019January 18;5(5):540548. doi: 10.1001/[email or web address].2020.0013 Current Interpretive Data was last revised on 2024. Non-HDL Cholesterol 144 mg/dL [facility] Comment: Interpretive Data Ages < or = 19 years Acceptable: <120 mg/dL Borderline high: 120-144 mg/dL High: >145 mg/dL Ages > or = 20 years When triglycerides are >200 mg/dL, Non-HDL cholesterol is a secondary target of therapy with treatment goals that are 30 mg/dL greater than the LDL cholesterol target. Literature References: 1. Expert Panel on Integrated Guidelines for Cardiovascular Health and Risk Reduction in Children and Adolescents. Pediatrics 2011;128:S213 2. NCEP Expert Panel. Circulation 2004;110:227 Current Interpretive Data was last revised on 2018. Chol/HDL ratio 3 [facility] Blood 06/14/2025 3:20 PM CDT 06/14/2025 6:17 PM CDT Join Hilario MD LAB BLOOD ORDERABLES Final Result [facility] [address] Department [place] [address] * (ABNORMAL) Comprehensive metabolic panel (06/14/2025 3:20 PM CDT) Sodium 141 135 - 145 mmol/L Potassium, pl 3.6 3.3 - 4.9 mmol/L [facility] Chloride 104 97 - 110 mmol/L [facility] CO2 26 22 - 32 mmol/L [facility] Anion gap 11 2 - 15 mmol/L [facility] BUN 15 6 - 25 mg/dL [facility] Creatinine 0.63 0.60 - 1.10 mg/dL [facility] Glucose 97 70 - 199 mg/dL [facility] Comment: Interpretive Data Fasting glucose >/= 126 mg/dl is diagnostic for diabetes. Fasting is defined as no caloric intake for at least 8 hours. Fasting glucose between 100 mg/dl to 125 mg/dl is diagnostic of prediabetes. In a patient with classic symptoms of hyperglycemia or hyperglycemic crisis, a random glucose >/= 200 mg/dl is diagnostic for diabetes. In the absence of unequivocal hyperglycemia, results should be confirmed by repeat testing. The classification and Diagnosis of Diabetes Diabetes Care 202; 46: S19-S40. Current interpretive data was last revised 2022. Calcium 10.3 8.5 - 10.3 mg/dL [facility] Bilirubin, total 0.5 0.1 - 1.2 mg/dL [facility] Protein, pl 7.2 6.5 - 8.5 g/dL [facility] Albumin 4.5 3.5 - 5.0 g/dL [facility] Alk phos 59 40 - 130 Units/L [facility] ALT 48(H) 7 - 45 Units/L [facility] AST 34 10 - 45 Units/L [facility] Blood 06/14/2025 3:20 PM CDT 06/14/2025 6:17 PM CDT us Joni Hilario MD LAB BLOOD ORDERABLES Final Result Performing Organization Address City/State/[facility] Co de Phone Number [facility] [address] [place] [address] * Botox Injection (05/10/2025 1:00 PM CDT) Narrative Rickey Kidd PA - 05/10/2025 1:00 PM CDT Rickey Kidd PA 06/05/2025 9:27 AM Botox Injection Performed by: Rickey Kidd PA Authorized by: Rickey Kidd PA [place] Protocol: Consent Given by: Patient Site marked: the procedure site was marked Timeout: prior to procedure the correct patient, procedure, and site was verified Procedure Details - Botox Injection: Procedure Details: Buy and Bill Botox 500 Units onabotulinumtoxin A (botulinum toxin type A, BOTOX) 100 unit injection us Rickey BAUMAN IN CLINIC/BEDSIDE OR DERABLES Edited Result - Final * Hepatitis C antibody Blood (12/11/2024 1:20 PM CDT) Hep C Ab Nonreactive Nonreactive Comment: Interpretive Data Nonreactive: Antibodies to HCV not detected. Does NOT exclude the possibility of recent exposure to HCV. Equivocal: Equivocal for HCV antibodies. Supplemental molecular testing will be automatically performed to determine infection status in accordance with current CDC screening recommendations. Reactive: Positive for HCV antibodies. This may represent current or past HCV infection. Supplemental molecular testing will be automatically performed to determine current infection status in accordance with current CDC screening recommendations. Interpretive data was last revised on 2019. Blood 12/11/2024 1:20 PM CDT 12/11/2024 9:53 PM CDT us Joni Hilario MD LAB MICROBIOLOGY - GENERAL ORDERABLES Final Result [facility] [id number] Department [place] [address] * Screening Mammogram Bilateral W Augusto (10/19/2024 11:46 AM WATER PUMPER) Anatomical Region Laterality Modality Breast Bilateral Mammography Narrative 10/19/2024 1:56 PM WATER PUMPER Mammogram Technique: Bilateral Digital Breast Tomosynthesis, Bilateral C-view 2D Screening mammogram. Views obtained: bilateral craniocaudal and bilateral mediolateral oblique. Computer Aided Detection was performed. Mammogram Findings: The present examination has been compared to prior imaging studies performed at [place], [place] on 03/02/2022, and at [facility], [place], [place] on 07/03/2019 and 11/14/2020. The breasts are heterogeneously dense, which may obscure small masses. There is no suspicious abnormality in either breast. Impression: There is no mammographic evidence of malignancy. Annual screening mammography is recommended. If supplemental screening is desired, breast MRI would be recommended in this patient with heterogeneously dense breasts. OVERALL FINAL ASSESSMENT: BI-RADS CATEGORY 1: Negative. Procedure Note Olivia Gill MD - 10/19/2024 Mammogram Technique: Bilateral Digital Breast Tomosynthesis, Bilateral C-view 2D Screening mammogram. Views obtained: bilateral craniocaudal and bilateral mediolateral oblique. Computer Aided Detection was performed. Mammogram Findings: The present examination has been compared to prior imaging studies performed at [place], [place] on 03/02/2022, and at [facility], [place], [place] on 07/03/2019 and 11/14/2020. The breasts are heterogeneously dense, which may obscure small masses. There is no suspicious abnormality in either breast. Impression: There is no mammographic evidence of malignancy. Annual screening mammography is recommended. If supplemental screeningis desired, breast MRI would be recommended in this patient with heterogeneously dense breasts. OVERALL FINAL ASSESSMENT: BI-RADS CATEGORY 1: Negative. Joni Hilario MD IMG MAMMO PROCEDURES Final Result from Last 3 Months or Most Recently Relevant to Health Maintenance Insurance [facility] EMPLOYEES [employer] [facility] H[employer]/PPO Address: [facility] [id number] [place] [id number] [facility] EM[employer]YE[employer] [facility] H[employer]/PPO Address: [address] [place], [place] [id number] [facility] [employer] [facility] [employer]/PPO Address: [address] [place] [address] Advance Directives For more information, please contact: [phone] * Full Code (Latest Code Status on File) Date Activated Date Inactivated Comments 09/02/2021 3:36 PM 09/03/2021 9:12 PM Care Teams Gi Physician Relationship Specialty Start Date End Date Joni Hilario MD [address] [place] [address] PCP - General Family Medicine 01/06/22 Laureano Ramos MD [address] [place] [address] Consulting Physician Neurosurgery 01/06/22 Satcie Madrid MD [address] [place] [address] Referring Physician Obstetrics and Gynecology 01/06/22
--- OUTSIDE RECORDS SUMMARY | 2025-07-05 17:54 | XMS_ITS | Clinical Summary ---
Author Organization [facility] Address [address] [place] [address] Phone Care Team Providers Care Studio Associate Name Role Phone Joni Hilario MD Primary Care Provider Medications ibuprofen (MOTRIN) 200 mg tablet Take 200 mg by mouth every 6 hours as needed. Active acetaminophen (TYLENOL ORAL) Take by mouth. Active GABAPENTIN ORAL Take by mouth. Active baclofen (LIORESAL) 10 mg tablet PLEASE SEE ATTACHED FOR DETAILED DIRECTIONS 3 Active losartan-hydroC HLOROthiazide (HYZAAR) 100-12.5 mg tablet Take 1 Tablet by mouth daily. 3 Active omeprazole (PriLOSEC) 40 mg Capsule, Delayed Release(E.C.) Take 40 mg by mouth. Active Active Problems No known active problems Family History Medical History Relation Name Comments Diabetes Brother Hypertension Brother Diabetes Father High Cholesterol Father Hypertension Father Breast Cancer Mother Diabetes Mother Heart Disease Mother High Cholesterol Mother Hypertension Mother Other Mother blood clots Diabetes Sister Hypertension Sister Relation Name Status Comments Brother Father Mother Sister Social History Tobacco Use Types Packs/Day Years Used Date Smoking Tobacco: Former Cigarettes Alcohol Use Standard Drinks/Week Comments Yes 0 (1 standard drink = 0.6 oz pur e alcohol) socially Comments Unknown Sex and Gender Information Value Date Recorded Sex Assigned at Not on file Legal Sex Female 9:33 AM TRAINING TECHNICIAN Gender Identity Not on file Sexual Orientation Not on file Last Filed Vital Signs Vital Sign Reading Time Taken Comments Blood Pressure 122/80 12/29/2022 3:30 PM CDT Pulse 98 12/29/2022 3:30 PM CDT Temperature 37 C (98.6 F) 12/29/2022 3:30 PM CDT Respiratory Rate - - Oxygen Saturation 98% 12/29/2022 3:30 PM CDT Inhaled Oxygen Concentration - - Weight 86.7 kg (191 lb 3.2 oz) 12/29/2022 3:30 P M CDT Height 167.6 cm (5' 6) 12/29/2022 3:30 PM CDT Body Mass Index 30.86 12/29/2022 3:30 PM CDT Plan of Treatment Health Maintenance Due Date Last Done Comments DTAP/TDAP/TD VACCINES (1 - Tdap) 1989 HEPATITIS B VACCINES (1 of 3 - 19+ 3-dose series) 1989 HPV/Cotest (21-29) 1991 CERVICAL CANCER SCREENING 01/13/2000 HPV/Cotest (30-65) 01/13/2000 PAP SMEAR 01/13/2000 COLORECTAL SCREENING 2015 Colorectal Cancer Screening 2015 FIT-DNA Q 3 years 2015 FIT/FOBT Q 1 year 2015 Flex Sig/CT Colonography Q 5 years 2015 BREAST CANCER SCREENING 11/14/2021 11/14/2020 INFLUENZA VACCINE (#1) 2025 , 08/03/2020, 08/03/2020 COVID-19 Vaccine ( season) 2025, 01/13/2021 ZOSTER VACCINE Completed 09/14/2020, 05/11/2020 Insurance [employer] [id number] Care Teams Studio Associate Relationship Specialty Start Date End Date Joni Hilario MD [address] [id number] PCP - General Family Practice 12/29/22
--- OUTSIDE RECORDS SUMMARY | 2025-07-05 17:54 | XMS_ITS | Encounter Summary ---
Author Organization [facility] Address [address] [place] [address] Phone Care Team Providers Care School Curriculum Developer Name Role Phone Brooklyn Negrete MD Primary Care Provider Pardeep Mckeon MD Unavailable Reason for Visit * Reason Comments Medication Refill Encounter Details Date Type Department Care Team (Late st Contact Info) Description 10/06/2020 Refill [facility] - Family Medicine [facility] [address] [place] [address] [place] [address] [place] [address] Medication Refill Social History Tobacco Use Types Packs/Day Years Used Date Smoking Tobacco: Former Cigarettes 1 - 07/05/2016 Smokeless Tobacco: Never Comments:weekend smoker with drinks Alcohol Use Standard Drinks/Week Comments Yes 0 (1 standard drink = 0.6 oz pur e alcohol) social- weekend- 2-3 drinks PHQ-2 Answer Date Recorded Total Score - Questions 1-9 0 04/20 Sexually Active Control Partners Comments Not Currently Male Comments No Sex and Gender Information Value Date Recorded Sex Assigned at Not on file Legal Sex Female 11:10 AM CO DIRECTOR Gender Identity Not on file Sexual Orientation Not on file documented as of this encounter Miscellaneous Notes * Telephone Encounter - Sylwia Morel RN - 10/07/2020 10:24 AM CST Should have refill on file for September - refill too soon DIRECTOR * Telephone Encounter - Sylwia Morel RN - 10/07/2020 10:23 AM CST hydroCHLOROthiazide 25 MG Tablet 30 Tab 1 09/10/2020 Sig: TAKE 1 TABLET BY MOUTH EVERY DAY Sent to pharmacy as: hydroCHLOROthiazide 25 MG Oral Tablet Class: E Prescribe E-Prescribing Status: Receipt confirmed by pharmacy (09/10/2020 11:53 AM CO DIRECTOR) hydroCHLOROthiazide 25 MG Tablet [[id number]] 1427 Status: Active Mode: Ordering in Standing Orders mode Communicated by: Sylwia Morel RN Ordering user: Sylwia Morel RN 09/10/20 1153 Ordering provider: Brooklyn Negrete MD Authorized by: Brooklyn Negrete MD Frequency: ??09/10/20 - Until Discontinued Released by: Sylwia Morel RN 09/10/20 1153 Diagnoses Essential hypertension [I10] Associated Diagnoses Essential hypertension Pharmacy [id number] [place] [address] DIRECTOR documented in this encounter Plan of Treatment Not on file documented as of this encounter Visit Diagnoses Diagnosis Essential hypertension Unspecified essential hypertension documented in this encounter Additional Health Concerns Assessment Noted Time PHQ-9 Depression Total Score: 0 05/06/20 20 7:41 AM CDT documented as of this encounter Care Teams School Curriculum Developer Relationship Specialty Start Date End Date Brooklyn Negrete MD PCP - General Family Medicine 05/01/19 03/06/24 Pardeep Mckeon MD [address] [address] Colon and Rectal Surgery 11/14/20 documented as of this encounter
--- OUTSIDE RECORDS SUMMARY | 2025-07-05 17:54 | XMS_ITS | Encounter Summary ---
Author Organization [facility] Address [address] [place] [address] Care Team Providers Care Insulation Packer Name Role Phone Laureano Ramos MD Unavailable [phone] Stacie Madrid MD Unavailable [phone] Joni Hilario MD Primary Care Provider [phone] Encounter Details Date Type Department Care Team (Late st Contact Info) Description 06/14/2025 Results Follow-Up [facility] Primary Care at [address] [address] Joni Hilario MD [address] [place] [address] [address] [place] [address] CBC with auto differential, Differential, auto Social History Tobacco Use Types Packs/Day Years [...] points, staff should administer the PHQ-9) 0 12/18/2024 Exercise Vital Sign Answer Date Recorde d [...] on file Legal Sex Female 11:29 AM CONTRACTS MANAGER Gender Identity Female 10/08/2021 7:18 PM CONTRACTS MANAGER Sexual Orientation Not on file 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
--- OUTSIDE RECORDS SUMMARY | 2025-07-05 17:54 | XMS_ITS | Encounter Summary ---
Author Organization [facility] Address [facility] [place] [address] Care Team Providers Care Highway Engineering Teacher Name Role Phone Joni Hilario MD Primary Care Provider + [phone] Encounter Details Date Type Department Care Team (Late st Contact Info) Description 06/10/2022 MyChart Message [facility] [address] [address] Rossana Zaman, STRAND GALVANIZER [address] [address] Checking on you:) Social History Tobacco Use Types Packs/Day Years Used Date Smoking Tobacco: Never Smokeless Tobacco: Never Comments:patient doesnt smok e PHQ-2 Answer Date Recorded PHQ-2 Score - [...] on filedocumented in this encounter Care Teams Highway Engineering Teacher Relationship Specialty Start Date End Date Joni Hilario MD [address] [place] [address] [address] [place] [address] PCP - General FAMILY PRACTICE 04/10/22 documented as of this encounter
--- OUTSIDE RECORDS SUMMARY | 2025-07-05 17:54 | XMS_ITS | Clinical Summary ---
Author Organization [facility] Address [address] [place] [address] Care Team Providers Care Residential Construction Instructor Name Role Phone Joni Hilario MD Primary Care Provider Source Comments [facility],non-owned Affiliates and Associated Physician Practices is amultiple site organization consisting of ambulatory clinics and hospital sitesin [place], [place], [place] and [place]. This disclosure is being madepursuant to the Care Everywhere program and may not contain all information available regarding this patient. Last updated 18.[facility] Allergies Active Allergy Reactions Criticality Noted Date Comments Wasp Venom Protein Anaphylaxis High 09/02/2021 Medications * Be aware that medications may not be up to date on this document. Alwaysverify current medications with the patient. Probiotic Product (PRO-BIOTIC BLEND PO) Take 1 tablet by mouth once daily Active baclofen (Lioresal) 10 MG tablet PLEASE SEE ATTACHED FOR DETAILED DIRECTIONS 01/13/20 23 Active gabapentin (Neurontin) 300 MG capsule Take 1 (one) capsule by mouth 12/22/19 23 Active ibuprofen (Motrin) 200 MG tablet Take 1 (one) tablet by mouth every 6 hours as needed Active losartan - hydroCHLOROthiazide (Hyzaar) 50-12.5 MG tablet 12/20/19 22 Active CBD product (various) Topical CBD for back pain Active Active Problems Problem Noted Date Diagnosed Date Tarsal tunnel syndrome of right side 08/20/2022 01/27/2023 Spinal stenosis of lumbar re gion without neurogenic claudication 07/28/2022 01/27/2023 Impaired gait and mobility 06/17/202201/27 Right foot drop 06/17/2022 01/27/2023 Overview (01/27/2023): Last Assessment & Plan: Gricel Andrade is a 52 year old [...] recommendation for an AFO and physical therapy Lumbar radiculopathy 04/13/2022 01/27/2023 Spondylosis of lumbar region without myelopathy or radiculopathy 04/08/2022 01/27/2023 Weakness of right lower extremity 04/08/2022 01/27/2023 Cervical disc disorder with myelopathy of mid-cervical region 08/11/2021 01/27/2023 Overview (01/27/2023): Added automatically from request for surgery [id number] Post-operative state 09/24/2020 High blood pressure 12/26/2018 01/27/2023 Fibroid Menorrhagia with regular cycle Family History Medical History Relation Name Comments Cancer - Breast Maternal Cousin CAD (Coronary Artery Disease) Mother Cancer - Breast Mother Diabetes - Type 2 Mother Hypertension Mother Cancer - Ovarian Sister Cancer - Uterine Sister Diabetes - Type 2 Sister Hypertension Sister Relation Name Status Comments Maternal Cousin Mother Sister Social History Tobacco Use Types Packs/Day Years Used Date Smoking Tobacco: Former Cigarettes Q uit: 1998 Smokeless Tobacco: Never Tobacco Cessation:Counseling Given: Not Answered Alcohol Use Standard Drinks/Week Comments Yes 0 (1 standard drink = 0.6 oz pur e alcohol) occa. Comments No Sex and Gender Information Value Date Recorded Sex Assigned at Female 01/26/2023 1:12 PM CDT Legal Sex Female 6:15 AM FRAME TENDER Gender Identity Female 01/26/2023 1:12 PM CDT Sexual Orientation Not on file Last Filed Vital Signs Vital Sign Reading Time Taken Comments Blood Pressure 130/80 01/27/2023 8:51 AM CDT Pulse 68 04/20/2021 12:46 PM CDT Temperature 36 C (96.8 F) 01/27/2023 8:51 AM CDT Respiratory Rate 20 04/20/2021 12:4 6 PM CDT Oxygen Saturation 97% 04/20/2021 12: 46 PM CDT Inhaled Oxygen Concentration - - Weight 87.9 kg (193 lb 12.8 oz) 023 11:30 AM CDT Height 167.6 cm (5' 6) 01/27/2023 8:51 AM CDT Body Mass Index 31.28 01/27/2023 8:51 AM CDT Plan of Treatment Health Maintenance Due Date Last Done Comments COLOGUARD (AGES 45-75) - COLON CA SCREENING 1970 COLON MONITORING 1970 COLONOSCOPY - COLON CA SCREENING 1970 CT COLONOGRAPHY - COLON CA SCREENING 1970 Colorectal Cancer Screening 1970 FIT - COLON CA SCREENING 1970 FLEX SIG - COLON CA SCREENING 1970 HIV SCREENING 1985 HEPATITIS C SCREENING 01/08/1988 DTAP/TDAP/TD VACCINES (1 - Tdap) 1989 HEPATITIS B VACCINE (1 of 3 - 19+ 3-dose series) 1989 PNEUMOCOCCAL VACCINE 50+ (1 of 1 - PCV) 01/13/2020 ZOSTER VACCINE (1 of 2) 01/13/2020 SCREENING FOR DIABETES 01/27/2023 6, 08/01/2015, 08/06/2014, Additional history exists MAMMOGRAM 03/02/2024 03/02/2022, 10/22, 07/03/2019, Additional history exists DEPRESSION SCREENING 09/20/2024 PAP with HPV 04/11/2025 04/11/2020 COVID-19 VACCINE ( season) 2025 02/03/2021, 01/13/2021 INFLUENZA VACCINE (#1) 2025 , 07/29/2021, 07/21/2021, Additional history exists LIPID TESTING 01/20/2028 01/19/2023, 1105/2016, 08/01/2015, Additional history exists HIB VACCINE Aged Out No longer eligi ble based on patient's age to complete this topic HPV VACCINE Aged Out No longer eligi ble based on patient's age to complete this topic MENINGOCOCCAL (Group B) VACCINE SHARED DECISION-MAKING Aged Out No longer eligible based on patient's age to complete this topic MENINGOCOCCAL GROUPS A/C/Y/W VACCINE Aged Out No longer eligible based on patient's age to complete this topic Procedures Procedure Name Priority Date/Time Associated Diagnosis Comments MAMMO BILAT DIAGNOSTIC W CHEMA Routine 03/02/2022 3:10 PM CDT Lump of right breast HPV DETECTION HIGH RISK SRINIVASA Routine 04/11/2020 9:25 AM CDT Well woman exam HEMOGLOBIN A1C Routine 07/29/2016 9:45 AM FRAME TENDER LIPID PROFILE Routine 07/29/2016 9:45 AM FRAME TENDER from Last 3 Months or Most Recently Relevant to Health Maintenance Results * MAMMO BILAT DIAGNOSTIC W CHEMA (03/02/2022 3:10 PM CDT) Anatomical Region Laterality Modality Breast Bilateral Mammography 03/02/2022 3:12 PM CDT Impressions 03/02/2022 3:14 PM CDT Mammographic imaging as detailed above. See recommendations above. BI-RADS: FDA recommends a single BI-RADS assessment for same day multi-modality imaging. Please see report from diagnostic ultrasound, performed subsequently today and reported separately, for today's final BIRADS categorization and recommendation. *Reading Radiologist: Jim Shin on 03/02/2022 at 3:14 PM Narrative 03/02/2022 3:14 PM CDT Bilateral mammography. Most recent comparison: 2020 HISTORY: Palpable abnormality right axilla TECHNIQUE: Bilateral Breasts. Mammography views included: CC and MLO + right diagnostic views Images interpreted with CAD. Following current [facility] protocol, 3D mammographic tomosynthesis images were obtained and reviewed on a dedicated viewing station. FINDINGS: Breast composition: Heterogeneously dense which may obscure small masses. Left breast: No suspicious microcalcifications, masses or areas of architectural distortion. No mammographic evidence of malignancy. Right breast: No suspicious microcalcifications, masses or areas of architectural distortion. No mammographic evidence of malignancy. In the setting of palpable abnormality and/or focal pain, targeted ultrasound is recommended and will be offered to the patient today. us Stacie Madrid MD MAMMO ORDERABLES Fin al Result * HPV DETECTION HIGH RISK SRINIVASA (04/11/2020 9:25 AM CDT) High Risk Human Papilloma Result Not Detected Not Detected 04/15/2020 4:18 PM CDT [facility] High Risk Human Papilloma Interp 04/15/2020 4:18 PM CDT [facility] Comment:High Risk Human Robert lloma Virus was Not Detected. Pathology/Cytolo gy MISCELLANEOUS SAMPLES / Unknown 04/11/2020 9:25 AM CDT 04/12/2020 11:27 AM CDT Narrative [facility] - 04/15/2020 4:18 PM CDT Nucleic acid isolated from the specimen was analyzed with a nucleic acid amplification test (FDA approved Gen-Probe HPV Assay) to detect high risk human papilloma virus (Types: 16, 18, 31, 33, 35, 39, 45, 51, 52, 56, 58, 59, 66, and 68). The reference range is Not Detected. Comment: These test results should not be used as the sole basis for clinical assessment and treatment of patients. These results should always be correlated with other available data (cytology, histology, and clinical information). Stacie Madrid MD LAB - MICROBIOLOGY O TATI Final Result Performing Organization Address City/State/[facility] Co de Phone Number [facility] [address] [phone] * HEMOGLOBIN A1C (07/29/2016 9:45 AM FRAME TENDER) Hemoglobin A1c 5.0 4.4 - 6.3 % [facility] Estimated Average Glucose 97 mg/dL [facility] Comment: HbA1c Interpretation: Treatment target values recommended by ADA and other clinical organizations should be used to evaluate metabolic control in patients. Treatment Target Values: Normal : < 5.7% Pre-diabetes: 5.7-6.4% Diabetes: Equal to or greater than 6.5% Reference: [place] [employer] Association Standards of Care in Diabetes -2014 In patients 70 years and older consider HbA1c target range of 7.0-7.5% Reference: Diabetes Mellitus in Older People: Position Statement on behalf of the International Association of Gerontology and Geriatrics (IAGG), the Diabetes Working Alliance Party for Older People (EDWPOP), and the International Task Force of Experts in Diabetes. Orville Tapia, et al. J [place] [employer] Association. 2012 Test results diagnostic of diabetes should be repeated for confirmation. The Tosoh G8 assay for the measurement of HbA1c is a National Glycohemoglobin Standardization Program (NGSP)certified method. Results for patients with HbE disease should be interpreted with caution as this hemoglobinopathy has been shown to interfere with the Tosoh G8 assay. Blood specimen (specimen) BLOOD SPECIMEN / Unknown 07/29/2016 9:45 AM FRAME TENDER 07/29/2016 12:31 PM FRAME TENDER Historical Provider LAB - CHEMISTRY ORDERABLE S Final Result Performing Organization Address [facility]/ZIP Co de Phone Number [address] [phone] * (ABNORMAL) LIPID PROFILE (07/29/2016 9:45 AM FRAME TENDER) Cholesterol Total 187 <200 mg/dL [facility] HDL 68 >40 mg/dL [facility] Comment: ATP III Classification of HDL Cholesterol: <40 mg/dL: Considered a major risk factor. >60 mg/dL: Considered a negative risk factor. LDL Calculated 106(H) <100 mg/dL [facility] Comment: ATP III Classification of LDL Cholesterol: <100 mg/dL: Optimal 100 - 129 mg/dL: Near Optimal/Above Optimal 130 - 159 mg/dL: Borderline High 160 - 189 mg/dL: High >190 mg/dL: Very High Triglycerides 64 <150 mg/dL [facility] Comment: ATP III Classification of Triglycerides: <150 mg/dL: Normal 150 - 199 mg/dL: Borderline High 200 - 400 mg/dL: High >500 mg/dL: Very High Blood specimen (specimen) BLOOD SPECIMEN / Unknown 07/29/2016 9:45 AM FRAME TENDER 07/29/2016 12:31 PM FRAME TENDER Historical Provider LAB - CHEMISTRY ORDERABLE S Final Result Performing Organization Address [facility]/ZIP Co de Phone Number [address] [phone] from Last 3 Months or Most Recently Relevant to Health Maintenance Insurance [facility] Member Subscriber Plan / Payer (Ef fective 2017-Present) Name:Gricel Andrade Member ID:Not on file Relation to Subscriber:Spouse Name:FLACO ANDRADE Date of :1967 (Home) (Work) Address: [address] [place] [address] Payer ID:[id number] (NAIC) Type:HMO Address: [place] [id number] [facility] Member Subscriber Plan / Payer (Ef fective 2017-Present) Name:Gricel Andrade Relation to Subscriber:Self Name:FLACO ANDRADE Payer ID:[id number] (NAIC) Type:HMO Address: [place] [phone] Advance Directives * Full Code (Latest Code Status on File) Date Activated Date Inactivated Comments 09/24/2020 2:17 PM 09/25/2020 5:11 PM Care Teams Residential Construction Instructor Relationship Specialty Start Date End Date Joni Hilario MD [address] [address] PCP - General 01/29/23
--- OUTSIDE RECORDS SUMMARY | 2025-07-05 17:54 | XMS_ITS | Encounter Summary ---
Author Organization [facility] [place] Address [address] [place] [address] Care Team Providers Care Armed Custom Protection Officer Name Role Phone Joni Hilario MD Primary Care Provider + [phone] Encounter Details Date Type Department Care Team (Late st Contact Info) Description 05/06/2022 Imperatort Message [facility] [address], [place] [address] Rossana Zaman, PHOTOGRAPHIC DEVELOPER AND PRINTER [address] [place] [address] EMG/NCV Social History Tobacco Use Types Packs/Day Years [...] on file Sexual Orientation Not on file COVID-19 Exposure Response Date Recorded In the last 10 days, have yo u been in contact with someone who was confirmed or suspected to have Coronavirus/COVID-19? No / Unsure 04/13/2022 3:11 PM CDT documented as of this encounter Plan of Treatment Not on file documented as of this encounter Visit Diagnoses Not on filedocumented in this encounter Care Teams Armed Custom Protection Officer Relationship Specialty Start Date End Date Joni Hilario MD [address] [place] [address] PCP - General FAMILY PRACTICE 04/10/22 documented as of this encounter
--- OUTSIDE RECORDS SUMMARY | 2025-07-05 17:54 | XMS_ITS | Clinical Summary ---
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 Active clotrimazole-bet amethasone (LOTRISONE) 1-0.05 % Cream Application Site: perianal (Description and Location) 45 g 05/06/20 Active Additional Information Patient taking differently: PRN, Application Site: perianal (Description and Location), Reported on 07/05/2020 EPINEPHrine (EPIPEN) 0.3 MG/0.3ML Solution Auto-injector 0.3 mL by Intramuscular route once as needed for Anaphylaxis (inject into thigh with wasp sting) for up to 1 dose. 1 auto injector 1 05/06/20 20 Active APPLE CIDER VINEGAR PO Take by mouth daily. Active gabapentin (NEURONTIN) 300 MG Capsule 06/13/20 21 Active gabapentin (NEURONTIN) 300 MG Capsule Take 300 mg by mouth. 06/13/20 21 Active esomeprazole (NexIUM) 40 MG CAPSULE DELAYED RELEASE Take 1 Capsule by mouth every morning (before breakfast). 30 Capsule 2 10/10/19 22 Active Phentermine HCl 37.5 MG Tablet Take 37.5 mg by mouth daily. 10/29/19 22 Active omeprazole (PriLOSEC) 40 MG CAPSULE DELAYED RELEASE Take 40 mg by mouth. 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 High blood pressure 12/26/2018 Immunizations Immunization Administration Dates Next Due Covid-19, Mrna, Lnp-s, Pf, 30 Mcg/0.3 Ml Dose (P fizer) 02/03/2021,01/13/2021 Influenza Vaccine greater than 3 yrs 08/03/2020 Influenza Vaccine, Quadrivalent, PF 07/29/2021 Influenza Vaccine,unspecified Formulation 2020 Influenza, Recombinant, Quadrivalent,injectable, Pf 08/03/2020 Zoster Vaccine Recombinant 09/14/2020,05/11/2020 Family History Medical History Relation Name Comments Diabetes Brother No Known Problems Daughter Alzheimer's Disease Father Diabetes Father Hypertension Father Breast Cancer Mother Diabetes Mother Heart Disease Mother Hypertension Mother Cancer Sister 1 ovarian and [place] Diabetes Sister 1 Hypertension Sister 1 Diabetes Sister 2 Hypertension Sister 2 Diabetes Sister 3 Hypertension Sister 3 Diabetes Sister 4 Hypertension Sister 4 No Known Problems Son 1 Scoliosis Son 2 youngest Relation Name Status Comments Brother Alive Daughter Alive Father Maternal Grandfather Maternal Grandmother Mother Alive Paternal Grandfather Paternal Grandmother Sister 1 Alive Sister 2 Alive Sister 3 Alive Sister 4 Alive Sister 5 Alive Son 1 Alive Son 2 youngest Alive Social History Tobacco Use Types Packs/Day Years Used Date Smoking Tobacco: Former Cigarettes 1 - 07/05/2016 Smokeless Tobacco: Never Tobacco Cessation:Counseling Given: No Comments:weekend smoker with drinks Alcohol Use Standard Drinks/Week Comments Yes 0 (1 standard drink = 0.6 oz pur e alcohol) social- weekend- 2-3 drinks PHQ-2 Answer Date Recorded Total Score - Questions 1-9 0 03/20 Sexually Active Control Partners Comments Not Currently Male Comments No Sex and Gender Information Value Date Recorded Sex Assigned at Not on file 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17 11/04/2021 8:24 AM INSPECTOR FILTER TIP Plan of Treatment Health Maintenance Due Date Last Done Comments Hepatitis C Virus (HCV) Screening 1970 TdaP Immunization 1970 Hepatitis B Immunization (1 of 3 - 19+ 3-dose series) 1989 Cologuard 2015 Immunochemical Fecal Occult Blood 2015 Pneumococcal Immunization (50+ years) (1 of 1 - PCV) 01/13/2020 Mammogram 03/02/2023 03/02/2022, 10/22, 04/01/2018, Additional history exists Influenza Immunization (#1) 2025 110 03/2022, 07/29/2021, 07/21/2021, Additional history exists SARS-COV-2 Immunization ( season) 2025 09/11/2021, 02/03/2021, 01/13/2021 Colonoscopy 12/12/2025 12/12/2020 Colorectal Cancer Screening 12/12/2025 Respiratory Syncytial Virus (RSV) Immunization (Adult) (1 - 1-dose 75+ series) 2045 Zoster Immunization Completed 09/14/2020, 0 Human Papillomavirus (HPV) Immunization Aged Out No longer eligible based on patient's age to complete this topic Meningococcal Immunization (ACWY) Aged Out No longer eligible based on patient's age to complete this topic Rotavirus Immunization Aged Out No lo nger eligible based on patient's age to complete this topic Procedures Procedure Name Priority Date/Time Associated Diagnosis Comments YOBANI SCREENING BILATERAL DIGITAL W CAD Routine 11/14/2020 Encounter for screening mammogram for breast cancer from Last 3 Months or Most Recently Relevant to Health Maintenance Results * [facility] SCREENING BILATERAL DIGITAL W CAD (11/14/2020) Anatomical Region Laterality Modality breast Bilateral Mammography Brooklyn Negrete MD IMG MAMMO ORDERABLES Final Result from Last 3 Months or Most Recently Relevant to Health Maintenance Care Teams Proof Clerk Relationship Specialty Start Date End Date Pardeep Mckeon MD [address] [address] Colon and Rectal Surgery 11/14/20
--- OUTSIDE RECORDS SUMMARY | 2025-07-05 17:54 | XMS_ITS | Encounter Summary ---
Author Organization [facility] Address [address] 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 No / Unsure 12/12/2020 7:09 AM CDT documented as of this encounter Miscellaneous Notes * Telephone Encounter - Karlene Awan RN - 01/07/2021 9:06 AM CDT Last Rx 12/16/20 #30 with 1 refill. documented in this encounter Plan of Treatment Not on file documented as of this encounter Visit Diagnoses Diagnosis Essential hypertension Unspecified essential hypertension documented in this encounter Additional Health Concerns Assessment Noted Time PHQ-9 Depression Total Score: 0 05/06/20 7:41 AM CDT documented as of this encounter Care Teams Infantry Officer Relationship Specialty Start Date End Date Brooklyn Negrete MD PCP - General Family Medicine 05/01/19 03/06/24 Pardeep Mckeon MD [address] [address] Colon and Rectal Surgery 11/14/20 documented as of this encounter
== END 2025-07-05 17:01 | disposition left against medical advice (07) ==
LOC: ANHED 16:59
PROVIDERS: PCP Family Medicine
DX: Z53.21 Procedure and treatment not carried out due to patient leaving prior to being seen by health care provider (principal)
CPT/HCPCS: 99199